=== PATIENT | female | born 1985 | race Caucasian/White ===

== ENCOUNTER 2021-10-22 09:08 | Emergency (ER) | payer MEDICARE, OTHER ==
[~2021-10-22 09:08] MED LIST: ALPRAZOLAM0.5 MG PO; NEURONTIN 400400 MG PO; PERCOCET 10-321 EACH PO; SEROQUEL300 MG PO
[2021-10-22 09:51] LABS: HEMOGLOBIN 12.7 gm/dl (12.3-15.3); RED BLOOD COUNT 4.33 M/UL (4.00-5.10); WHITE BLOOD COUNT 12.2 K/UL (4.5-11.0)
[2021-10-22 10:04] LABS: BUN/CREATININE RATIO 9 (0-10)
[2021-10-22] MEDS ORDERED: BENADRYL 25MG C25 MG PO (13:13)
[2021-10-22] MEDS ORDERED: PEPCID40 MG PO (13:13)
[2021-10-22] MEDS ORDERED: MEDROL DOSEPAK 24 MG PO (13:13)
[2021-10-23] MEDS ORDERED: FAMOTIDINE40 MG PO (10:00)
== END 2021-10-22 14:12 | disposition home or self-care (01) ==
LOC: ER1 09:08
PROVIDERS: Physician Assistant Medical
DX: T78.40XA Allergy, unspecified, initial encounter (principal); K14.8 Other diseases of tongue
CPT/HCPCS: 71045; 80053; 80307; 81001; 85025; 93005; 96374; 96375; 99285; J2930

== ENCOUNTER 2021-10-22 16:49 | Inpatient (IN) | payer MEDICARE, OTHER ==
[~2021-10-22] VITALS: Ht 165.1 cm; Wt 70.3 kg
[~2021-10-22 16:49] MED LIST changes: +BENADRYL 25MG C25 MG PO; +MEDROL DOSEPAK 24 MG PO; +PEPCID40 MG PO
[2021-10-22 17:59] LABS: HEMOGLOBIN 13.5 gm/dl (12.3-15.3); RED BLOOD COUNT 4.46 M/UL (4.00-5.10)
[2021-10-22 18:00] LABS: WHITE BLOOD COUNT 22.7 K/UL (4.5-11.0)
[2021-10-22 18:44] LABS: BUN/CREATININE RATIO 12 (0-10)
[2021-10-23 04:39] LABS: HEMOGLOBIN 11.2 gm/dl (12.3-15.3); RED BLOOD COUNT 3.78 M/UL (4.00-5.10); WHITE BLOOD COUNT 15.5 K/UL (4.5-11.0)
[2021-10-23 05:30] LABS: BUN/CREATININE RATIO 10 (0-10)
[2021-10-23] MEDS ORDERED: FAMOTIDINE40 MG PO (10:00)
[2021-10-23 16:19] LABS: BORDETELLA PARAPERTUSSIS Not Detected (Not Detectd); BORDETELLA PERTUSSIS Not Detected (Not Detectd); CHLAMYDIA PNEUMONIAE Not Detected (Not Detectd); CORONAVIRUS HKU1 Not Detected (Not Detectd); CORONAVIRUS NL63 Not Detected (Not Detectd); CORONAVIRUS OC43 Not Detected (Not Detectd); CORONOAVIRUS 229E Not Detected (Not Detectd); HUMAN METAPNEUMOVIRUS Not Detected (Not Detectd); HUMAN RHINOVIRUS/ENTEROVIRUS Not Detected (Not Detectd); INFLUENZA A Not Detected (Not Detectd); INFLUENZA B Not Detected (Not Detectd); MYCOPLASMA PNEUMONIAE Not Detected (Not Detectd); PARAINFLUENZA VIRUS 1 Not Detected (Not Detectd); PARAINFLUENZA VIRUS 2 Not Detected (Not Detectd); PARAINFLUENZA VIRUS 3 Not Detected (Not Detectd); PARAINFLUENZA VIRUS 4 Not Detected (Not Detectd); RESPIRATORY SYNCYTIAL VIRUS Not Detected (Not Detectd); SARS-CoV-2 NOT DETECTED (Not Detectd)
[2021-10-24 02:49] LABS: CANDIDA ALBICANS Not Detected (Negative); CANDIDA KRUSEI Not Detected (Negative); CANDIDA TROPICALIS Not Detected (Negative); ESCHERICHIA COLI Not Detected (Negative); HAEMOPHILUS INFLUENZAE Not Detected (Negative); KLEBSIELLA OXYTOCA Not Detected (Negative); KLEBSIELLA PNEUMONIAE Not Detected (Negative); KPC-CARBAPENEM-RESISTANCE GENE Not Detected (Negative); PROTEUS Not Detected (Negative); PSEUDOMONAS AERUGINOSA Not Detected (Negative); SERRATIA MARCESANS Not Detected (Negative); STAPHYLOCOCCUS AUREUS Not Detected (Negative); STREP AGALACTIAE (GROUP B) Not Detected (Negative); STREP PYOGENES (GROUP A) Not Detected (Negative); STREPTOCOCCUS Not Detected (Negative); vanA/B (VANCOMYCIN RESIST GENE Not Detected (Negative)
[2021-10-24 04:23] LABS: STAPHYLOCOCCUS DETECTED (Negative)
[2021-10-24 05:56] LABS: HEMOGLOBIN 10.7 gm/dl (12.3-15.3); RED BLOOD COUNT 3.58 M/UL (4.00-5.10); WHITE BLOOD COUNT 12.5 K/UL (4.5-11.0)
[2021-10-24 06:28] LABS: BUN/CREATININE RATIO 13 (0-10)
[2021-10-25 06:30] LABS: HEMOGLOBIN 10.6 gm/dl (12.3-15.3); RED BLOOD COUNT 3.58 M/UL (4.00-5.10); WHITE BLOOD COUNT 9.4 K/UL (4.5-11.0)
[2021-10-25 07:11] LABS: BUN/CREATININE RATIO 13 (0-10)
--- NOTE | 2021-10-26 01:23 | NUR ---
REQUESTING TO LEAVE ICU TO GO SMOKE. ENCOURAGED TO REMAIN IN ICU , IN AGREEMENT TO TRY NICOTINE PATCH IF ORDERED.
[2021-10-26 05:13] LABS: HEMOGLOBIN 10.5 gm/dl (12.3-15.3); RED BLOOD COUNT 3.54 M/UL (4.00-5.10); WHITE BLOOD COUNT 8.7 K/UL (4.5-11.0)
[2021-10-26 05:43] LABS: BUN/CREATININE RATIO 9 (0-10)
[2021-10-26 08:14] LABS: HBSAG SCREEN Negative (Negative); HCV AB <0.1 (0.0-0.9); HEP A AB, IGM Negative (Negative); HEP B CORE AB, IGM Negative (Negative)
[2021-10-26] MEDS ORDERED: AMOX TR-K CLV1 EAC4 PO (17:18)
[2021-10-26] MEDS ORDERED: PREDNISONE 20 M20 MG PO (17:21)
[2021-10-26] MEDS ORDERED: PREDNISONE 10 M10 MG PO (17:21)
[2021-10-27 17:11] LABS: ORGANISM ID Not indicated. (.); SPECIMEN SOURCE Urine (.); STREPTOCOCCUS PNEUMONIAE AG Negative (Negative)
== END 2021-10-26 18:09 | disposition home or self-care (01) | DRG 917 ==
LOC: ER1 16:49 → CCU 20:47 → CDU 20:47 → CCU 21:46
PROVIDERS: Emergency Medicine; Internal Medicine; ADMIT Internal Medicine
PROC: 0BH17EZ Insertion of Endotracheal Airway into Trachea, Via Natural or Artificial Opening (ICD-10-PCS; 2021-10-22)
PROC: 5A1945Z Respiratory Ventilation, 24-96 Consecutive Hours (ICD-10-PCS; 2021-10-22)
PROC: 05H533Z Insertion of Infusion Device into Right Subclavian Vein, Percutaneous Approach (ICD-10-PCS; 2021-10-22)
PROC: 3E03329 Introduction of Other Anti-infective into Peripheral Vein, Percutaneous Approach (ICD-10-PCS; 2021-10-22)
PROC: B24BZZZ Ultrasonography of Heart with Aorta (ICD-10-PCS; principal; 2021-10-24)
DX: T43.621A Poisoning by amphetamines, accidental (unintentional), initial encounter (principal); A41.9 Sepsis, unspecified organism; J18.9 Pneumonia, unspecified organism; G92.8 Other toxic encephalopathy; J96.01 Acute respiratory failure with hypoxia; R65.20 Severe sepsis without septic shock; J69.0 Pneumonitis due to inhalation of food and vomit; E87.2 Acidosis; E83.51 Hypocalcemia; E86.0 Dehydration; R74.01 Elevation of levels of liver transaminase levels; F19.10 Other psychoactive substance abuse, uncomplicated; Z88.8 Allergy status to other drugs, medicaments and biological substances; Z79.52 Long term (current) use of systemic steroids
CPT/HCPCS: ECHO; 31500; 36415; 36600; 36680; 51702; 70450; 71045; 80048; 80053; 80074; 80202; 80307; 81001; 82550; 82553; 82803; 83605; 83735; 83880; 84100; 84132; 84703; 85025; 85027; 85652; 86140; 87040; 87070; 87077; 87086; 87150; 87186; 87205; 87278; 87633; 87899; 93005; 93306; 94002; 94003; 94760; 96365; 96366; 96368; 96374; 96375; 99285; C9113; G0480; J0461; J0696; J1650; J2001; J2060; J2543; J2704; J2920; J2930; J3010; J3370; J3480; J7030; J7050; J7070; Q9967

== ENCOUNTER 2021-11-02 03:41 | Emergency (ER) | payer MEDICARE, OTHER ==
[~2021-11-02 03:41] MED LIST changes: +AMOX TR-K CLV1 EAC4 PO; +FAMOTIDINE40 MG PO; +PREDNISONE 10 M10 MG PO; +PREDNISONE 20 M20 MG PO
== END 2021-11-02 07:50 | disposition home or self-care (01) ==
LOC: ER1 03:41
DX: T40.2X1A Poisoning by other opioids, accidental (unintentional), initial encounter (principal); K50.90 Crohn's disease, unspecified, without complications
CPT/HCPCS: 99284